=== PATIENT | female | born 1945 | race Caucasian/White ===

== ENCOUNTER 2024-01-16 10:05 | Emergency (ER) | payer MEDICARE, SELFPAY ==
[2024-01-16] VITALS (9 sets, daily range): BP systolic 104–165; BP diastolic 32–91
[2024-01-16 11:18] LABS: % Basophils 0.7 % (0-2); % Eosinophils 0.1 % (0-6); % Immature Granulocytes 0.4 % (0-0.5); % Neutrophils 74.8 % (42.2-75.2); Absolute Basophils 0.1 10^3/uL (0-0.2); Absolute Lymphocytes 1.5 10^3/uL (1.2-3.4); Absolute Monocytes 0.5 10^3/uL (0.1-0.6); Absolute Neutrophils 6.2 10^3/uL (1.4-6.5); Hematocrit 50.5 % (37.0-47.0); Hemoglobin 17.1 g/dL (12.0-16.0); Mean Corp Hgb Conc. 33.9 g/dL (33.0-37.0); Mean Corpuscular Hgb 32.4 pg (27.0-31.0); Mean Corpuscular Volume 95.6 fL (81.0-99.0); Mean Platelet Volume 10.7 fL (7.4-10.4); Nucleated Red Blood Cells % 0 %; Platelet Count 248 10^3/uL (130-400); Red Blood Cell Count 5.28 10^6/uL (4.20-5.40); Red Cell Dist. Width 12.5 % (11.5-14.5); White Blood Cell Count 8.3 10^3/uL (4.8-10.8)
[2024-01-16 11:39] LABS: Blood Urea Nitrogen 31 mg/dl (7-17); Calcium 9.3 mg/dl (8.4-10.2); Carbon Dioxide 28 mmol/L (22-30); Chloride 99 mmol/L (98-107); Glucose 128 mg/dl (70-99); Sodium 136 mmol/L (135-145); eGFR > 60.00
--- NOTE | 2024-01-16 11:45 | ED.GENMED ---
History of Present Illness
<Priti Brandt PA-C - Last Filed: 01/16/24 23:29>
General
Chief Complaint: Breathing Problem
Source: patient
Exam Limitations: none
Time Seen by Provider: 01/16/24 11:23
Nursing documentation reviewed up to this point in time: agreed with
Travel History
Have you had any contact with someone who has COVID-19?: No
Do you have any symptoms of coronavirus? Fever > 100 degrees, chills, cough, shortness of breath, sore throat, loss of taste or smell, muscle aches, or headache?: No
History of Present Illness
History of Present Illness:
Patient is an 78-year-old female with history of glaucoma presenting to the emergency department for evaluation of shortness of breath. Patient unsure when symptoms started but feels as if it has been hard to take a deep breath over the past many
weeks. She also reports occasional palpitations in lower chest.
Patient's friend who is a nurse states that she has been dealing with constipation over the past few months. She also endorses very dark yellow urine.
Patient denies any chest pain, headache, fever, chills, hemoptysis, cough. She denies any urinary symptoms.
Patient has not seen a primary care doctor in many years. Patient has a long history of smoking. She does live alone since her brother a few months ago. She does report not eating and drinking much. Patient denies any recent falls or trauma
Phy Exam
<Priti Brandt PA-C - Last Filed: 01/16/24 23:29>
Physical Exam
Physical Exam:
General: Very frail and thin appearing, cachectic; nontoxic
Vitals: Mildly hypertensive, otherwise vital signs stable; afebrile
HEENT: protecting airway
Neck: appears supple, no JVD, no midline cervical tenderness, trachea midline
CV: Regular rate and rhythm, heart sounds normal, no evidence of cyanosis; anterior chest wall nontender to palpation
Resp: Very diminished breath sounds and poor air movement bilaterally, O2 saturation 95 on room air
Abd: Soft, nontender, non-distended
Extremities: No deformities, no evidence of cyanosis or edema; calves nontender and nonerythematous/edematous bilateral
Back: No midline spinal tenderness, no rash
Neuro: alert and oriented; grossly intact
Psych: Normal affect
Skin: Intact, no rashes
Scores
<Priti Brandt PA-C - Last Filed: 01/16/24 23:29>
Heart Failure Risk
Heart Failure Risk Score: Not Applicable
Course
<Priti Brandt PA-C - Last Filed: 01/16/24 23:29>
Orders/Labs/Results
Orders:
Orders
01/16/24 11:06
Basic Metabolic Panel Urgent
CBC/With Diff [Complete Blood Count/With Diff] Urgent
01/16/24 11:07
EKG [Electrocardiogram (*1)] Urgent
Reason for Study: Shortness of Breath
01/16/24 11:08
EKG- Treatment ONCE
01/16/24 11:56
Ipratropium/Albuterol Sulfate [Duoneb] 3 ml INH R NOW STA
CR Chest - 2 Views Urgent
Comment:
Reason For Exam: shortness of breath
01/16/24 11:57
0.9% Sodium Chloride 500 ml [Nss] 500 ml IV BOLUS
01/16/24 12:12
D-Dimer Urgent
Troponin I Urgent
01/16/24 12:21
Case Management Consult ONCE
Case Management Consult: Discharge Planning
Lumbar Spine, 2 or 3 View [CR Lumbar Spine 2 Or 3 Views] Urgent
Comment:
Reason For Exam: lower back pain
PT Consult [Pt Eval And Treat] Urgent
Activity Level: As Tolerated
01/16/24 13:43
Urinalysis Reflex To Culture Urgent
Date Specimen was Collected: 01/16/24
Time Specimen was Collected: 13:40
Urine Microscopic Reflex Cult Urgent
Urine Culture Urgent
MARYELLEN Source: U
Specimen Description:
Date Specimen was Collected: 01/16/24
Time Specimen was Collected: 13:40
01/16/24 14:07
Dexamethasone Sod Phosphate [Decadron] 6 mg IV NOW STA
01/16/24 14:34
CefTRIAXone [Rocephin] 1,000 mg IV NOW STA
Abnormal Lab Results
01/16/24 01/16/24 01/16/24
11:06 12:12 13:43
Hgb 17.1 H g/dL
(12.0-16.0)
Hct 50.5 H %
(37.0-47.0)
MCH 32.4 H pg
(27.0-31.0)
MPV 10.7 H fL
(7.4-10.4)
Lymphocytes % 18.0 L %
(20.5-51.1)
D-Dimer 0.58 H ug/mlFEU
(0.00-0.50)
BUN 31 H mg/dl
(7-17)
Glucose 128 H mg/dl
(70-99)
Urine Ketones 3+ A
(Negative)
Urine Nitrite (Reflex) Positive A
(Negative)
Leukocyte Esterase Rfl Trace A
(Negative)
Urine WBC (Reflex) 16-20 A /HPF
(0-5)
Urine Bacteria (Reflex) Many A
(Negative)
01/16/24 11:06
01/16/24 11:06
Vital Signs
Initial and Last Documented VS:
Initial Vital Signs
Temp Pulse Resp BP Pulse Ox
98.3 F 98 22 143/91 94
01/16/24 10:18 01/16/24 10:18 01/16/24 10:18 01/16/24 10:18 01/16/24 10:18
Last Documented Vital Signs
Temp Pulse Resp BP Pulse Ox
98.5 F 85 23 104/32 95
01/16/24 17:30 01/16/24 15:55 01/16/24 15:55 01/16/24 16:02 01/16/24 14:30
<Jass Krause MD - Last Filed: 01/16/24 12:26>
Orders/Labs/Results
Orders:
Orders
01/16/24 11:06
Basic Metabolic Panel Urgent
CBC/With Diff [Complete Blood Count/With Diff] Urgent
01/16/24 11:07
EKG [Electrocardiogram (*1)] Urgent
Reason for Study: Shortness of Breath
01/16/24 11:08
EKG- Treatment ONCE
01/16/24 11:56
Ipratropium/Albuterol Sulfate [Duoneb] 3 ml INH R NOW STA
CR Chest - 2 Views Urgent
Comment:
Reason For Exam: shortness of breath
01/16/24 11:57
0.9% Sodium Chloride 500 ml [Nss] 500 ml IV BOLUS
01/16/24 12:12
D-Dimer Urgent
Troponin I Urgent
01/16/24 12:21
Case Management Consult ONCE
Case Management Consult: Discharge Planning
Lumbar Spine, 2 or 3 View [CR Lumbar Spine 2 Or 3 Views] Urgent
Comment:
Reason For Exam: lower back pain
PT Consult [Pt Eval And Treat] Urgent
Activity Level: As Tolerated
01/16/24 13:43
Urinalysis Reflex To Culture Urgent
Date Specimen was Collected: 01/16/24
Time Specimen was Collected: 13:40
Urine Microscopic Reflex Cult Urgent
Urine Culture Urgent
MARYELLEN Source: U
Specimen Description:
Date Specimen was Collected: 01/16/24
Time Specimen was Collected: 13:40
01/16/24 14:07
Dexamethasone Sod Phosphate [Decadron] 6 mg IV NOW STA
01/16/24 14:34
CefTRIAXone [Rocephin] 1,000 mg IV NOW STA
Abnormal Lab Results
01/16/24 01/16/24 01/16/24
11:06 12:12 13:43
Hgb 17.1 H g/dL
(12.0-16.0)
Hct 50.5 H %
(37.0-47.0)
MCH 32.4 H pg
(27.0-31.0)
MPV 10.7 H fL
(7.4-10.4)
Lymphocytes % 18.0 L %
(20.5-51.1)
D-Dimer 0.58 H ug/mlFEU
(0.00-0.50)
BUN 31 H mg/dl
(7-17)
Glucose 128 H mg/dl
(70-99)
Urine Ketones 3+ A
(Negative)
Urine Nitrite (Reflex) Positive A
(Negative)
Leukocyte Esterase Rfl Trace A
(Negative)
Urine WBC (Reflex) 16-20 A /HPF
(0-5)
Urine Bacteria (Reflex) Many A
(Negative)
01/16/24 11:06
01/16/24 11:06
Vital Signs
Initial and Last Documented VS:
Initial Vital Signs
Temp Pulse Resp BP Pulse Ox
98.3 F 98 22 143/91 94
01/16/24 10:18 01/16/24 10:18 01/16/24 10:18 01/16/24 10:18 04/16/24 10:18
Last Documented Vital Signs
Temp Pulse Resp BP Pulse Ox
98.5 F 85 23 104/32 95
01/16/24 17:30 01/16/24 15:55 01/16/24 15:55 01/16/24 16:02 01/16/24 14:30
<Priti Brandt PA-C - Last Filed: 01/16/24 23:29>
MDM/Problems Addressed
Differential Diagnosis Includes:
Shortness of breath: COPD, bronchitis, pneumothorax, pneumonia, PE; sciatica, compression fracture, muscle strain/spasm
MDM/Problems Addressed:
Patient is an 78 year old female presenting to emergency department with neighbor for evaluation of progressive shortness of breath and chronic low back pain. No fever, chills. No red flag back pain symptoms. Patient with difficulty ambulating/
completing ADLs over past few months since he brother . Suspect all chronic medical problems. Exam as above. Patient incredibly thin, cachectic. Decreased breath sounds bilaterally. With lengthy history of smoking - suspect likely undiagnosed
COPD. Will give duoneb and decadron. Will check labs, troponin, dimer, chest xray. Lumbar xray.
Significant concern for patients ability to care for herself at home. Will place consult for case management and PT.
Labs noted. D-dimer adjusted for age - within normal limit. Troponin undetectable. Signs of mild dehydration - will give IVF. Chest xray shows hyperinflation consistent with COPD but no acute process. Patient maintaining O2 saturation around 95 on
room air without any decline with ambulation. Will plan for discharge with steroid inhaler for daily use, albuterol PRN, medrol dose pack.
Lumbar xray negative for any acute fracture, degenerative changes seen.
UA appears infected. Will give rocephin in ED and discharge with course of ceftin to start tomorrow.
Patient medically stable for discharge at this point. Discussed admission vs. discharge home with patient.Lengthy discussion with PT and case management. Unable to place in SNF based on insurance coverage. Unable to coordinate home care due to lack
of PCP. Case managment spoke with friend/neighbor who is a nurse. She will check on patient daily, ensure PCP follow-up so home nursing can be initiated.
Discussed discharge planning / medications / return precautions with both patient and friend (nurse). All questions answered. They will get appt with patient this week.
Chronic conditions affecting care:
N/A
Acute Exacerbation and/or Progression of Chronic Illness:
COPD
<Priti Brandt PA-C - Last Filed: 01/16/24 23:29>
*Radiology
Radiology exam reviewed: preliminary read by ED provider and radiology read reviewed
*Pulse Oximetry
Patient hypoxic: no
*EKG
Interpreted by ED Provider?: Yes
EKG Intrepretation Date: 01/16/24
Comparison EKG: changes noted
Heart Rate: 81
Rate: normal
Rhythm: sinus
Ischemia: non-specific ST changes
*Account Installation Specialist Interpretation
Rate: normal
Interpretation: normal
Heart Rate: 84
Rhythm: sinus
*Critical Care Note
Total Time (30-74mins, 75-104mins- exclusive of procedures): Not Applicable
<Priti Brandt PA-C - Last Filed: 01/16/24 23:29>
Patient Management
Social determinants of health affecting care: Living situation, Poor outpatient follow-up and Poor social support
Discussion with other providers: Other (Case managment/ PT)
Escalation/DeEscalation of care consider admission/obs:
Medically stable for discharge without any indication for admission
ED Attending Note
<Priti Brandt PA-C - Last Filed: 01/16/24 23:29>
-
Portions of this chart may have been created with voice recognition software.� Occasional wrong word or��sound alike� substitutions may have occurred due to the inherent limitations of voice recognition software.
<Jass Krause MD - Last Filed: 01/16/24 12:26>
ED Attending Note
Patient seen and examined by attending physician: Yes
I performed the substantive portion of visit, reviewed & personally made and approve the management plan that is documented in note by myself or RG.: Yes
ED Attending Note:
78-year-old female complaining of ongoing shortness of breath progressive in nature also low back pain that has been there since last year. Patient was brought in by a neighbor. Lives alone since her brother recently. Has been dwindling at
home. Patient has no other specific complaints.
GENERAL: Alert and oriented. Elderly and frail. Cachectic
EYE: Orbits normal.
NECK: Supple
CARDIAC: Regular rate and rhythm without any obvious murmurs.
LUNGS: Minimal tachypnea. Decreased breath sound usually.
ABDOMEN: Soft, without focal tenderness or distention
NEUROLOGICAL: Alert and oriented , grossly non-focal
SKIN: Warm and dry, no rash or lesion, no discoloration, skin intact.
MUSCULOSKELETAL: No edema,no deformity.Good color. Thinning
PSYCH: Normal and appropriate interaction.
Suspect all chronic issues COPD chronic back pain. Workup in progress. There are concerns for ADL issues and patient living alone. We will have case management and physical therapy involved. Check pulse ox with ambulation.
Discharge Plan
Departure
Patient Disposition: Home (Routine Discharge)
Date of Disposition: 01/16/24
Time of Disposition: 15:46
Patient with high blood pressure during this ER visit?: Yes
Condition: Good
Covid-19: Not Applicable
Discharge Problem:
COPD (chronic obstructive pulmonary disease), Acute UTI
Instructions: Chronic obstructive pulmonary disease (COPD), Urinary Tract Infection, Adult (DC)
Prescriptions:
New
cefdinir 300 mg capsule
300 mg PO BID 5 Days Qty: 10 0RF
albuterol sulfate 90 mcg/actuation HFA aerosol inhaler
2 puff inhalation Q4H PRN (Reason: shortness of breath or wheezing) Qty: 8.5 0RF
methylprednisolone 4 mg tablets,dose pack
See Rx Instructions .ROUTE .COMPLEX Qty: 21 0RF
Rx Instructions:
for 6 days
fluticasone propionate 110 mcg/actuation HFA aerosol inhaler
2 puff inhalation BID Qty: 12 0RF
No Action
Thera Tablet
1 tab PO DAILY
timolol maleate 0.5 % Gel Forming Solution
1 drp BOTH EYES DAILY
Referrals:
Elijah Barrios MD [Family Provider] - Next open appointment
Activity Restrictions/Additional Instructions:
- Return to the emergency department any high fevers, chest pain, shortness of breath/difficulty breathing, persistent cough/coughing up blood, inability to ambulate, severe pain, worsening of current symptoms, signs of severe dehydration, or any
other concerns
-A few prescriptions have been sent to your pharmacy. You should take these as directed. You should start these medications tomorrow. You should use the Flovent inhaler twice per day. The albuterol inhaler can be used as needed for shortness of
breath/wheezing
-You can take tylenol as needed for any pain.
-It is important to stay well-hydrated.
-As discussed -it is very important that you follow-up with your primary care provider as soon as possible to establish care. Your neighbor will plan to come check on you every day until you are able to establish at home nursing care.
Interventions
Interventions:
*Risk Screen - Suicide Last Done: 01/16/24 10:18
*General Assessment Last Done: 01/16/24 10:18
*Neglect/Abuse Screening Last Done: 01/16/24 10:18
*Nursing Disposition Last Done: 01/16/24 17:30
ER-Oahnxr-Vfcmhxjpyz Assessment Last Done: 01/16/24 12:19
ED- Cardiac Assessment Last Done: 01/16/24 12:19
ED- Pulmonary Assessment Last Done: 01/16/24 12:19
Discharge Date and Time
Discharge Date/Time: 01/16/24 18:10
Print Language: TRINIDADIAN
[2024-01-16] MEDS: DUONEB 3 ML INH (12:08)
[2024-01-16] MEDS: NSS 500 IV (12:09)
[2024-01-16 12:32] LABS: D-Dimer 0.58 ug/mlFEU (0.00-0.50)
[2024-01-16 12:44] LABS: Troponin I 0.014 ng/ml
--- NOTE | 2024-01-16 12:46 | CM ---
Addendum entered by Tracey Rob RN 01/16/24 15:35:
CM called [employer] with report of self neglect. Aging will follow up with patient and her support system.
Addendum entered by Tracey Rob RN 01/16/24 14:42:
Patient spoke with patient's friend Tracey who is an RN. She stated that she will help provide supervision for patient with the assistance of her mother in law who is patient's neighbor. Tracey stated that she plans to assist patient in making and
getting to her doctor's appointments.
CM updated patient and she is agreeable to plan. CM will call [employer] with a report of self neglect.
CM updated ED PA and bedside RN.
PLAN: Home with friends to support and increased supervision.
Original Note:
CM was consulted for discharge planning. CM met with patient in room. Patient was oriented and pleasant. Patient did appear very cachectic. Patient stated that she lives alone. She does not have a history of VN or SNF. Patient stated that she does
drive occasionally to access food at the local grocery store. Patient has not seen her PCP for several years.
CM updated ED PA with discharge planning challenges. Patient does not have Medicare funding to go to SNF. Patient also had not seen her PCP in several years therefore she does not have a physician to follow her for home care. CM will await continued
ED work up and PT evaluation.
[2024-01-16 14:04] LABS: Urine Albumin Trace (Neg - Trace); Urine Bilirubin Negative (Negative); Urine Character Slightly Cloudy (Clear); Urine Color Yellow; Urine Glucose Negative (Negative); Urine Ketone 3+ (Negative); Urine Leukocyte Trace (Negative); Urine Nitrite Positive (Negative); Urine Occult Blood Negative (Negative); Urine Urobilinogen Negative (Neg - 1+)
[2024-01-16 14:16] LABS: Urine Bacteria Many (Negative); Urine Red Blood Cell 0-2 /HPF (0-2); Urine Squamous Cell 0-2 /LPF (Few); Urine White Cell 16-20 /HPF (0-5)
[2024-01-16] MEDS: ROCEPHIN 1000 MG IV (15:50)
[2024-01-16] MEDS: DECADRON 6 MG IV (15:51)
== END 2024-01-16 18:10 | disposition home or self-care (01) ==
LOC: EMR 10:05
PROVIDERS: Physician Assistant; EMERGENCY PHYSICIAN Emergency Medicine; FAMILY PHYSICIAN Internal Medicine
DX: N39.0 Urinary tract infection, site not specified (principal); J44.9 Chronic obstructive pulmonary disease, unspecified; R03.0 Elevated blood-pressure reading, without diagnosis of hypertension; Z87.891 Personal history of nicotine dependence; Z60.2 Problems related to living alone
CPT/HCPCS: 99285; 96374; 96375; 96361; 94640; 71046; 72100; 80048; 81003; 81015; 84484; 85025; 85379; 87077; 87086; 87186; 93005

== ENCOUNTER → 2024-07-18 06:33 | Outpatient (REF) | payer MEDICARE, SELFPAY ==
[2024-07-18 08:09] LABS: ALT (SGPT) 13 U/L (0-35); AST (SGOT) 25 U/L (14-36); Albumin 4.6 g/dl (3.5-5.0); Alkaline Phosphatase 48 U/L (38-126); Amylase 182 U/L (30-110); Blood Urea Nitrogen 22 mg/dl (7-17); Calcium 9.6 mg/dl (8.4-10.2); Carbon Dioxide 34 mmol/L (22-30); Chloride 103 mmol/L (98-107); Glucose 102 mg/dl (70-99); Lipase 417 U/L (23-300); Potassium 4.5 mmol/L (3.5-5.1); Sodium 145 mmol/L (135-145); Total Bilirubin 0.5 mg/dl (0.2-1.3); Total Protein 6.8 g/dl (6.3-8.2); eGFR > 60.00
[2024-07-18 08:17] LABS: Free T4 1.11 ng/dl (0.78-2.19)
[2024-07-18 08:31] LABS: TSH 2.32 uIU/ml (0.47-4.68)
== END ==
LOC: RAD 06:33
PROVIDERS: ATTENDING PHYSICIAN Internal Medicine
DX: R63.4 Abnormal weight loss (principal); R63.6 Underweight
CPT/HCPCS: 36415; 76700; 80053; 82150; 83690; 84439; 84443

== ENCOUNTER 2024-11-16 16:21 | Inpatient (IN) | payer MEDICARE, SELFPAY ==
[2024-11-16] VITALS (8 sets, daily range): BP systolic 94–151; BP diastolic 60–83; BMI 14.6; BMI 13.3
[2024-11-16 14:39] LABS: % Basophils 0.3 % (0-2); % Immature Granulocytes 0.3 % (0-0.5); % Lymphocytes 15.3 % (20.5-51.1); % Monocytes 9.6 % (1.7-9.3); % Neutrophils 74.5 % (42.2-75.2); Absolute Monocytes 0.6 10^3/uL (0.1-0.6); Absolute Neutrophils 4.6 10^3/uL (1.4-6.5); Hemoglobin 15.7 g/dL (12.0-16.0); Mean Corpuscular Hgb 30.3 pg (27.0-31.0); Mean Corpuscular Volume 94.4 fL (81.0-99.0); Mean Platelet Volume 10.1 fL (7.4-10.4); Nucleated Red Blood Cells % 0 %; Platelet Count 212 10^3/uL (130-400); Red Blood Cell Count 5.19 10^6/uL (4.20-5.40); Red Cell Dist. Width 12.8 % (11.5-14.5); White Blood Cell Count 6.2 10^3/uL (4.8-10.8)
[2024-11-16 14:57] LABS: ALT (SGPT) 15 U/L (0-35); AST (SGOT) 32 U/L (14-36); Albumin 4.8 g/dl (3.5-5.0); Alkaline Phosphatase 60 U/L (38-126); Blood Urea Nitrogen 29 mg/dl (7-17); Calcium 8.8 mg/dl (8.4-10.2); Carbon Dioxide 27 mmol/L (22-30); Chloride 96 mmol/L (98-107); Estimated Creatinine Clearance 29 ml/min; Glucose 125 mg/dl (70-99); Potassium 5.1 mmol/L (3.5-5.1); Sodium 136 mmol/L (135-145); Total Protein 7.2 g/dl (6.3-8.2); eGFR > 60.00
[2024-11-16 15:02] LABS: COVID-19 Antigen Negative (Negative)
[2024-11-16 15:05] LABS: NT-proBNP 383 pg/ml
--- NOTE | 2024-11-16 15:27 | ED.GENMED ---
History of Present Illness
General
Chief Complaint: Breathing Problem
Source: patient
Exam Limitations: none
Time Seen by Provider: 11/16/24 15:04
Nursing documentation reviewed up to this point in time: agreed with
History of Present Illness
History of Present Illness:
Patient with history of COPD, accompanied by home care/RN who watches her 6 hours a day, 6 days a week, presents to ED from home secondary to overall declining condition over the past 2 weeks, worse over the past 48 hours. Patient also has had
intermittent cough. Patient has had significant decreased appetite. Patient has been sleeping more frequently and has been difficult to wake up. Denies fever. Denies vomiting or diarrhea. Denies chest pain. Denies abdominal pain. Denies rash.
Denies headache. Denies dizziness.
Review of Systems
Review of Systems
Allergies reviewed?: Yes
All Other Systems: ROS reviewed and negative except as documented in HPI and ROS
Constitutional: Reports no symptoms; Denies fever or chills
EENT: Reports no symptoms
Respiratory: Reports cough and trouble breathing
Cardiac: Reports no symptoms
ABD/GI: Reports no symptoms; Denies vomiting or diarrhea
Musculoskeletal: Reports no symptoms
Skin: Reports no symptoms
Neurological: Reports weakness; Denies dizzy or headache
Phy Exam
Physical Exam
Physical Exam:
Physical Exam
General: mild distress, not acutely ill. afebrile
Head: nc/at. eomi
Neck: supple. normal range of motion.
Heart: s1/s2 regular rate and rhythm, no murmur.
Lungs: mild acute respiratory distress. expiratory wheezing bilaterally
Abdomen: normal bowel sounds. not tender.
Neuro: alert and oriented x 3. no focal neurological deficits
Skin: no rash
Psychiatric: well kept. interactive and cooperative
Extremities: no edema. no calf tenderness.
Scores
Heart Failure Risk
Heart Failure Risk Score: Not Applicable
Course
Orders/Labs/Results
Orders:
Orders
11/16/24 14:14
Electrocardiogram (*1) Urgent
Reason for Study: Chest Pain
EKG- Treatment ONCE
11/16/24 14:19
CR Chest - 2 Views Urgent
Comment:
Reason For Exam: hypoxia
11/16/24 14:23
BNP [NT-proBNP] Urgent
COVID-19 Antigen Urgent
Source: Nasal Swab
Complete Blood Count/With Diff Urgent
Comprehensive Metabolic Panel Urgent
Influenza A+B Rapid Molecular Urgent
MARYELLEN Source: Nasal Swab
Specimen Description:
11/16/24 15:26
0.9% Sodium Chloride 500 ml [Nss] 500 ml IV BOLUS
Dexamethasone Sod Phosphate [Decadron] 6 mg IV NOW STA
Ipratropium/Albuterol Sulfate [Duoneb] 3 ml INH R NOW STA
11/16/24 15:55
Admit/Transfer Patient As Directed
Co-Sign Provider:
Level of Care: Inpatient admission
Assign to:: Medical/Surgical
Physician / Group: [email or web address]
Diagnosis: COPD flare, associated lethargic TME
Reason for Hospitalization: COPD flare, associated lethargic TME
Expected length of stay greater than two midnights?: Yes
ELOS- Estimated Length of Stay in days: 3
I certify the patient meets the requirements for IP care: Yes
11/16/24 15:56
Code Status As Directed
Resuscitation Status: Full Code
11/16/24 17:19
Ipratropium/Albuterol Sulfate [Duoneb] 3 ml INH R Q4HPRN PRN
Ipratropium/Albuterol Sulfate [Duoneb] 3 ml INH R QID
11/16/24 17:19
Activity As Directed
Activity Level: With Assistance
Intake/ Output As Directed
Frequency: Per unit guidelines
Vital Signs As Directed
Frequency: Per unit guidelines
Weight As Directed
Frequency: Daily
Copd Education [RESP] Routine
DX Deep Vein Thrombosis Video Routine
11/16/24 20:00
Guaifenesin [Mucinex] 600 mg PO Q12
11/17/24 00:00
Dexamethasone Sod Phosphate [Decadron] 4 mg IV Q8H
11/17/24 Breakfast
Regular
At Your Request: Full Participation
Does patient need a safe tray?: No
Basic Metabolic Panel IN AM
Complete Blood Count/With Diff IN AM
11/17/24 08:00
timolol maleate 1 drop BOTH EYES DAILY
Abnormal Lab Results
11/16/24
14:23
Hct 49.0 H %
(37.0-47.0)
MCHC 32.0 L g/dL
(33.0-37.0)
Absolute Lymphs (auto) 1.0 L 10^3/uL
(1.2-3.4)
Lymphocytes % 15.3 L %
(20.5-51.1)
Monocytes % 9.6 H %
(1.7-9.3)
Chloride 96 L mmol/L
(98-107)
BUN 29 H mg/dl
(7-17)
Glucose 125 H mg/dl
(70-99)
11/16/24 14:23
11/16/24 14:23
Vital Signs
Initial and Last Documented VS:
Initial Vital Signs
Temp Pulse Resp BP Pulse Ox
97.6 F 89 20 144/82 93
11/16/24 14:10 11/16/24 14:10 11/16/24 14:10 11/16/24 14:10 11/16/24 14:10
Last Documented Vital Signs
Temp Pulse Resp BP Pulse Ox
97.6 F 61 16 116/65 99
11/16/24 23:42 11/16/24 23:42 11/16/24 23:42 11/16/24 23:42 11/16/24 23:42
MDM/Problems Addressed
MDM/Problems Addressed:
History and exam consistent with likely COPD exacerbation secondary to influenza, along with dehydration due to lack of oral intake. Patient will be admitted for further evaluation and treatment. As symptoms started 2 weeks ago, patient is outside
treatment window for Tamiflu.
*Critical Care Note
Total Time (30-74mins, 75-104mins- exclusive of procedures): Not Applicable
ED Attending Note
-
Portions of this chart may have been created with voice recognition software.� Occasional wrong word or��sound alike� substitutions may have occurred due to the inherent limitations of voice recognition software.
Discharge Plan
Departure
Patient Disposition: Admit
Date of Disposition: 11/16/24
Time of Disposition: 15:31
Admit to: Telemetry
Presentation/result/management discussed w/ accepting MD/DO: Hospitalist
Discharge Problem:
COPD exacerbation, Influenza A, Dehydration
Interventions
Interventions:
*Risk Screen - Suicide Last Done: 11/16/24 17:34
*General Assessment Last Done: 11/16/24 14:10
*Neglect/Abuse Screening Last Done: 11/16/24 14:10
ED- Fall Risk Assessment Last Done: 11/16/24 14:33
*ED COVID-19 Vaccine History Last Done: 11/16/24 14:33
*Nursing Disposition Last Done: 11/16/24 16:46
ED- Cardiac Assessment Last Done: 11/16/24 14:33
ED- Pulmonary Assessment Last Done: 11/16/24 14:33
Discharge Date and Time
Discharge Date/Time: 11/16/24 17:13
[2024-11-16] MEDS: DUONEB 3 ML INH ×2 (15:45→19:42)
[2024-11-16] MEDS: DECADRON 6 MG IV (15:45)
--- NOTE | 2024-11-16 15:49 | HPS.HSE ---
Family Physician
-
Family Physician: Deon Barrios
Chief Complaint
-
POS intermittent cough
History of Present Illness
HPI
79F HX COPD, accompanied by home care/RN who watches her 6 hours a day, 6 days a week, seen at ER
- BiB from home due to overall declining condition over the past 2 weeks, worse over the past 48 hours.
- POS intermittent cough
- significantly decreased appetite.
- has been sleeping more frequently and has been difficult to wake up.
ROS
Denies fever.
Denies vomiting or diarrhea.
Denies chest pain.
Denies abdominal pain.
Denies rash.
Denies headache.
Denies dizziness.
Medical History
Past Medical History
Past Medical History: Reports COPD
Past Surgical History: Reports None
Social History
Tobacco: Former Smoker
Alcohol: None
Family History
Family History: Not pertinent
Allergies / Home Medications
Allergies reflects when Allergies were last updated in [facility].
Home Medications with original date entered in [facility]
Allergy/Medication List:
Allergies
Allergy/AdvReac Type Severity Reaction Status Date / Time
No Known Allergies Allergy Verified 11/16/24 14:20
Home Medications
albuterol sulfate 90 mcg/actuation aerosol inhaler 2 puff inhalation Q4H PRN shortness of breath or wheezing #8.5 grams 01/16/24
cefdinir 300 mg capsule 300 mg PO BID 5 days #10 caps 01/16/24
fluticasone propionate 110 mcg/actuation HFA aerosol inhaler 2 puff inhalation BID #12 grams 01/16/24
methylprednisolone 4 mg tablets in a dose pack See Rx Instructions PO .COMPLEX #21 ea 01/16/24
therapeutic multivitamin 1 tab PO DAILY 01/16/24
timolol maleate 0.5 % eye gel forming solution 1 drp BOTH EYES DAILY 01/16/24
Review of Systems
-
Constitutional: Reports No Symptoms
EENT: Reports No Symptoms
Respiratory: Reports See HPI
Cardiac: Reports No Symptoms
Abdomen/GI: Reports No Symptoms
: Reports No Symptoms
Musculoskeletal: Reports No Symptoms
Skin: Reports No Symptoms
Neurological: Reports No Symptoms
Endocrine: Reports No Symptoms
Hematologic/Lymphatic: Reports No Symptoms
Psych: Reports No Symptoms
Physical Exam
Vital Signs
Vital Signs
Temp Pulse Resp BP Pulse Ox
97.6 F 83 20 107/62 97
11/16/24 14:10 11/16/24 15:00 11/16/24 15:00 11/16/24 15:00 11/16/24 15:08
Physical Exam
General: Other (mildly distress , not toxic )
HEENT: NormoCephalic
Respiratory: Wheezes (expiratory wheezing bilaterally)
Cardiac: S1/S2 and Regular Rhythm; No Murmur
Breast: Deferred by me
GI: Soft, Non Tender and Non Distended
Genito-urinary: Deferred by me
Musculoskeletal: No Edema
Skin: No Rash
Neuro: AO x 3
Psych: Calm
Laboratory Results
-
11/16/24 14:23
11/16/24 14:23
Laboratory Results
Total Bilirubin 1.0 mg/dl (0.2-1.3) 11/16/24 14:23
AST 32 U/L (14-36) 11/16/24 14:23
ALT 15 U/L (0-35) 11/16/24 14:23
Alkaline Phosphatase 60 U/L (38-126) 11/16/24 14:23
Data Reviewed
-
Diagnostic Radiology: Report Reviewed by me
Lab Data: Labs Reviewed by me
Impression/Plan
-
Data
Nl WCC
Unremarkable CMP
CO2 27
proBNP 383
POS Flu A
CXR
COPD. No acute cardiopulmonary process.
EKG
NORMAL SINUS RHYTHM
SEPTAL INFARCT (CITED ON OR BEFORE 03-JAN-2006)
ABNORMAL ECG
WHEN COMPARED WITH ECG OF 16-JAN-2024 11:17,
NONSPECIFIC T WAVE ABNORMALITY NOW EVIDENT IN ANTERIOR LEADS
NO PRIOR hospitalist admission:
ASSESSMENT & PLAN
Viral Flu A; onset is presumed almost 2 weeks
- out of Tamiflu for benefits
COPD flare with acute bronchospasm
Intermittent lethargy due to associated TME
NEG CXR for infiltrate
- check PCT till them hold Cefdinir
- Agree with IV Decadron 4mg q8h
- c/w Nebs qid and PRN
- O2 to keep POx > 94
- If no progress in next 24 Hrs, to consider Pul consult
DVT Px: LMWH
Full code
IP MS
[2024-11-16] MEDS: NSS 500 IV (15:50)
[2024-11-16] MEDS: DUONEB INH (17:24)
--- NOTE | 2024-11-16 18:31 | PTCARENOTE ---
Rec'd pt from ER. Walked from stretcher to bed. Pt denies pain. Bed alarm placed under pt as pt's caregiver Tracey stated she has had some balance issues. Pt utilizes a cane at home which Tracey will bring tomorrow along with her eye gel. Call bower
in reach and pt oriented to unit.
[2024-11-16] MEDS: HEPARIN 5000 UNITS SC (20:20)
[2024-11-16] MEDS: MUCINEX 600 MG PO (20:20)
[2024-11-16] MEDS: DECADRON 4 MG IV (23:40)
[2024-11-17 04:44] LABS: % Basophils 0.3 % (0-2); % Lymphocytes 22.9 % (20.5-51.1); % Monocytes 5.1 % (1.7-9.3); % Neutrophils 71.7 % (42.2-75.2); Absolute Lymphocytes 0.9 10^3/uL (1.2-3.4); Absolute Monocytes 0.2 10^3/uL (0.1-0.6); Absolute Neutrophils 2.7 10^3/uL (1.4-6.5); Hematocrit 46.3 % (37.0-47.0); Hemoglobin 14.6 g/dL (12.0-16.0); Mean Corp Hgb Conc. 31.5 g/dL (33.0-37.0); Mean Corpuscular Hgb 30.5 pg (27.0-31.0); Mean Corpuscular Volume 96.9 fL (81.0-99.0); Mean Platelet Volume 10.2 fL (7.4-10.4); Nucleated Red Blood Cells % 0 %; Platelet Count 175 10^3/uL (130-400); Red Blood Cell Count 4.78 10^6/uL (4.20-5.40); Red Cell Dist. Width 12.7 % (11.5-14.5); White Blood Cell Count 3.7 10^3/uL (4.8-10.8)
[2024-11-17 05:07] LABS: Blood Urea Nitrogen 36 mg/dl (7-17); Calcium 8.5 mg/dl (8.4-10.2); Carbon Dioxide 29 mmol/L (22-30); Chloride 102 mmol/L (98-107); Estimated Creatinine Clearance 31 ml/min; Glucose 130 mg/dl (70-99); Potassium 5.5 mmol/L (3.5-5.1); Sodium 138 mmol/L (135-145); eGFR > 60.00
[2024-11-17 06:00] VITALS: BMI 12.9
[2024-11-17 07:34] VITALS: BP 135/73
[2024-11-17] MEDS: DUONEB 3 ML INH ×4 (07:40→19:34)
[2024-11-17] MEDS: HEPARIN 5000 UNITS SC ×2 (07:47→19:12)
[2024-11-17] MEDS: MUCINEX 600 MG PO ×2 (07:47→19:13)
[2024-11-17] MEDS: DECADRON 4 MG IV ×3 (07:50→23:44)
[2024-11-17 10:24] LABS: Procalcitonin 0.15 ng/ml (0.0-0.25)
--- NOTE | 2024-11-17 11:05 | W.PN.HOSP.TC ---
Today's Communication/Plan
-
Monitor vital signs see plan
Continue with IV steroids, nebs
Add Pulmicort
Add nicotine patch
Assessment / Plan
Assessment / Plan
General: Other (mildly distress , not toxic )
HEENT: NormoCephalic
Respiratory: Wheezes (expiratory wheezing bilaterally)
Cardiac: S1/S2 and Regular Rhythm; No Murmur
GI: Soft, Non Tender and Non Distended
Musculoskeletal: No Edema
Neuro: AO x 3
Psych: Calm
Acute hypoxic respiratory sufficiency likely secondary to COPD exacerbation with underlying influenza A
Onset is presumed at least around 2 weeks, out of window for Tamiflu. Symptomatic treatment
Chest x-ray without any infiltrate
Procalcitonin negative
Hold off on antibiotics
Continue with IV Decadron, nebs 4 times daily and as needed. Add Pulmicort
Actively smoking, nicotine patch
Currently on 2 L, wean oxygen as tolerated
Patient used to an inhaler however refused to use it at home per artificial flowers supervisor at bedside
Active smoking
cessation counseling
nicotine patch
Hyperkalemia
Lokelma
Monitor
DVT prophylaxis
Heparin
Full code
Anticipated Discharge: 24 - 48 hours
Subjective/Interval History
-
Date of Service: November 17, 2024
Denies pain
Objective Data
-
Labs:
Laboratory Results
11/17/24
04:25
WBC 3.7 L
Hgb 14.6
Hct 46.3
Plt Count 175
Sodium 138
Potassium 5.5 H
Chloride 102
Carbon Dioxide 29
BUN 36 H
Creatinine 0.8
Glucose 130 H
Calcium 8.5
Vital Signs:
Vital Signs
Temp Pulse Resp BP Pulse Ox
98 F 88 16 135/73 96
11/17/24 07:34 11/17/24 10:58 11/17/24 10:58 11/17/24 07:34 11/17/24 07:46
I&O
11/16/24 11/17/24 11/18/24
06:59 06:59 06:59
Intake Total 360 / 360
Balance 360 / 360
[2024-11-17] MEDS: PULMICORT 0.5 MG INH ×2 (11:16→19:35)
[2024-11-17] MEDS: LOKELMA 10 GRAM PO (11:21)
[2024-11-17] MEDS: MAG-TAB SR 84 MG PO (11:22)
[2024-11-17] MEDS: PREPARATION H OINTMENT 1 APPLIC RECTAL (11:22)
[2024-11-17] MEDS: NICODERM TRANSDERMAL 7 MG TRANSDERM (11:22)
--- NOTE | 2024-11-17 12:56 | CM ---
CM reviewed chart, patient positive for Influenza A. Patient seen bedside, initial assessment completed. Patient reports she resides independently in a townhouse, 6 steps to enter, full flight of stairs to bedroom, has been staying downstairs on
couch. Patient confirms she has a private caregiver, Tracey, 6 days a week, about 6 hours, unsure if she has had VN in the past, denies SNF. Patient has a cane and walker at home, currently on O2, does not wear home O2. Patient PCP Deon
Denis, pharmacy [facility]. CM will continue to follow for all discharge planning needs.
Plan; home with caregiver, patient may benefit from PT/OT jacob, watch for VN needs
[2024-11-17 15:10] VITALS: BP 113/68
--- NOTE | 2024-11-17 18:31 | PTCARENOTE ---
attempt to wean patient to room air, Patient's O2 desat to 85%, 2L NC placed with O2 sat 97%, will continue to monitor.
[2024-11-17 23:09] VITALS: BP 119/67
[2024-11-18 06:00] VITALS: BMI 13.1
[2024-11-18 07:10] VITALS: BP 123/58
[2024-11-18] MEDS: MAG-TAB SR 84 MG PO (07:27)
[2024-11-18] MEDS: DECADRON 4 MG IV ×3 (07:27→23:13)
[2024-11-18] MEDS: MUCINEX 600 MG PO ×2 (07:27→19:45)
[2024-11-18] MEDS: NICODERM TRANSDERMAL 7 MG TRANSDERM (07:27)
[2024-11-18] MEDS: HEPARIN 5000 UNITS SC ×2 (07:27→19:45)
[2024-11-18] MEDS: DUONEB 3 ML INH ×4 (07:36→20:06)
[2024-11-18] MEDS: PULMICORT 0.5 MG INH ×2 (07:36→20:06)
[2024-11-18] MEDS: NON-FORMULARY ITEM 1 DROP BOTH EYES (07:38)
[2024-11-18 09:16] LABS: % Immature Granulocytes 0.1 % (0-0.5); % Lymphocytes 7.3 % (20.5-51.1); % Monocytes 3.5 % (1.7-9.3); % Neutrophils 89.1 % (42.2-75.2); Absolute Lymphocytes 0.6 10^3/uL (1.2-3.4); Absolute Monocytes 0.3 10^3/uL (0.1-0.6); Absolute Neutrophils 7.3 10^3/uL (1.4-6.5); Hematocrit 44.8 % (37.0-47.0); Hemoglobin 14.3 g/dL (12.0-16.0); Mean Corp Hgb Conc. 31.9 g/dL (33.0-37.0); Mean Corpuscular Hgb 30.7 pg (27.0-31.0); Mean Corpuscular Volume 96.1 fL (81.0-99.0); Nucleated Red Blood Cells % 0 %; Platelet Count 200 10^3/uL (130-400); Red Blood Cell Count 4.66 10^6/uL (4.20-5.40); Red Cell Dist. Width 12.5 % (11.5-14.5); White Blood Cell Count 8.2 10^3/uL (4.8-10.8)
[2024-11-18 09:49] LABS: Blood Urea Nitrogen 35 mg/dl (7-17); Calcium 8.7 mg/dl (8.4-10.2); Carbon Dioxide 31 mmol/L (22-30); Chloride 100 mmol/L (98-107); Estimated Creatinine Clearance 40 ml/min; Glucose 98 mg/dl (70-99); Potassium 4.6 mmol/L (3.5-5.1); Sodium 139 mmol/L (135-145); eGFR > 60.00
--- NOTE | 2024-11-18 11:25 | CM ---
CM reviewed chart, patient seen bedside, remains on O2. CM will watch for PT/OT evaluations for further recommendations. CM will continue to follow for all discharge planning needs.
Plan; home with caregivers, watch O2 needs, watch for VN/SNF recommendations.
--- NOTE | 2024-11-18 13:27 | W.PN.HOSP.TC ---
Today's Communication/Plan
-
home O2 eval in AM
continue current plan of care
PT/OT today
Assessment / Plan
Assessment / Plan
Assessment:
Acute hypoxic respiratory sufficiency likely secondary to COPD exacerbation with underlying influenza A
- out of window for Tamiflu, symptom onset ~2 weeks
- continue supportive care
- CXR negative; no role for Abx
- continue IV Decadron
- continue Pulmicort
- continue nebs
- O2 status: on 2L, wean as able. Home O2 testing in 24 hours
Active smoking
- cessation counseling
- nicotine patch
Hyperkalemia
- improved s/p Lokelma
DVT prophylaxis: SC Heparin
Code: Full
Anticipated Discharge: 24 - 48 hours
Subjective/Interval History
-
Date of Service: November 18, 2024
resting ok
remains with wheezing, mild SOB
Objective Data
-
Labs:
Laboratory Results
11/18/24
07:38
WBC 8.2
Hgb 14.3
Hct 44.8
Plt Count 200
Sodium 139
Potassium 4.6
Chloride 100
Carbon Dioxide 31 H
BUN 35 H
Creatinine 0.6
Glucose 98
Calcium 8.7
Vital Signs:
Vital Signs
Temp Pulse Resp BP Pulse Ox
97.7 F 88 15 123/58 87
11/18/24 07:10 11/18/24 11:44 11/18/24 11:44 11/18/24 07:10 11/18/24 11:53
I&O
11/17/24 11/18/24 11/19/24
06:59 06:59 06:59
Intake Total 360 / 360 480 / 480
Balance 360 / 360 480 / 480
Physical Exam
-
General: No Apparent Distress
HEENT: Normocephalic and Atraumatic
Respiratory: Wheezes and Decreased Breath Sounds (with some chest tightness)
Cardiac: Regular Rhythm and S1/S2
GI: Soft
Neuro: AO x 3
Psych: Calm
Data Reviewed
-
Total Time Spent with Patient (in minutes): 41
Labs: Labs Reviewed by me
--- NOTE | 2024-11-18 14:41 | PTCARENOTE ---
Addendum entered by Delfina Doran RN 11/18/24 14:45:
while at rest
Original Note:
Patient weaned off of oxygen O2 sat 93% on RA
[2024-11-18 15:08] VITALS: BP 164/90; PULSE 78; O2SAT 93
--- NOTE | 2024-11-18 15:30 | PTCARENOTE ---
patient working with PT, patient desat to 85% on RA while sitting up in chair. 2L NC placed on patient. O2 sat increased to 90% on 2LNC while in chair. will continue to monitor.
[2024-11-18 16:18] VITALS: BP 164/90; PULSE 75; O2SAT 93
[2024-11-18 23:30] VITALS: BP 131/64
[2024-11-19 05:51] VITALS: BMI 13.1
[2024-11-19] MEDS: DUONEB 3 ML INH ×4 (05:56→19:39)
[2024-11-19] MEDS: PULMICORT 0.5 MG INH ×2 (05:56→19:39)
[2024-11-19 07:00] VITALS: BP 158/76
[2024-11-19 08:59] LABS: Hematocrit 43.8 % (37.0-47.0); Mean Corpuscular Hgb 30.5 pg (27.0-31.0); Mean Corpuscular Volume 95.4 fL (81.0-99.0); Mean Platelet Volume 11.1 fL (7.4-10.4); Platelet Count 195 10^3/uL (130-400); Red Blood Cell Count 4.59 10^6/uL (4.20-5.40); Red Cell Dist. Width 12.6 % (11.5-14.5); White Blood Cell Count 7.4 10^3/uL (4.8-10.8)
[2024-11-19 09:47] LABS: Blood Urea Nitrogen 36 mg/dl (7-17); Calcium 8.7 mg/dl (8.4-10.2); Carbon Dioxide 34 mmol/L (22-30); Chloride 100 mmol/L (98-107); Estimated Creatinine Clearance 34 ml/min; Glucose 92 mg/dl (70-99); Potassium 5.5 mmol/L (3.5-5.1); Sodium 139 mmol/L (135-145); eGFR > 60.00
--- NOTE | 2024-11-19 10:16 | PN.CDI ---
CDI
- -
CDI:
Physician Documentation Request
Admit Date: 11/16/24 16:21
Dear Doctor Kim,
Please review the following and provide your response in the progress notes.
Clinical Indicators:
Height: 5' 4'
Weight: 76 lbs
BMI: 13.1
If possible, please provide an associated diagnosis related to the abnormal BMI, such as:
Cachectic
Underweight
BMI is not significant
Other
BMI < or = to 19.9
Underweight
Weight Loss
Cachectic
Anorexia
Use of terms such as suspected, likely, concern for, or probable (associated with a specific diagnosis that is being evaluated, monitored, or treated as if it exists) are acceptable and can be coded in the inpatient setting, when documented at the
time of discharge.
Thank you,
Alyce Farfan RN, BSN
CDI Specialist
Available via [place] text
Please use your independent medical judgment in providing your response.
--- NOTE | 2024-11-19 10:23 | W.PN.HOSP.TC ---
Today's Communication/Plan
-
decrease IV steroids
home O2 testing
Assessment / Plan
Assessment / Plan
Assessment:
Acute hypoxic respiratory sufficiency likely secondary to COPD exacerbation with underlying influenza A
- out of window for Tamiflu, symptom onset ~2 weeks
- continue supportive care
- CXR negative; no role for Abx
- continue IV Decadron, wean to 4mg q12 from q8h
- continue Pulmicort
- continue nebs
- O2 status: on 2L, wean as able. Home O2 testing today
Active smoking
- cessation counseling
- nicotine patch
Hyperkalemia
- improved s/p Lokelma
Pulmonary cachexia
DVT prophylaxis: SC Heparin
Code: Full
Dispo: PT/OT recommends SNF. Caregivers/family opt for home/VN with 24 hour care.
Anticipated Discharge: Within 24 hours
Subjective/Interval History
-
Date of Service: November 19, 2024
denies any new complaints at present
breathing improved
Objective Data
-
Labs:
Laboratory Results
11/19/24
08:05
WBC 7.4
Hgb 14.0
Hct 43.8
Plt Count 195
Sodium 139
Potassium 5.5 H
Chloride 100
Carbon Dioxide 34 H
BUN 36 H
Creatinine 0.7
Glucose 92
Calcium 8.7
Vital Signs:
Vital Signs
Temp Pulse Resp BP Pulse Ox
98.1 F 76 20 158/76 95
11/19/24 07:00 11/19/24 07:00 11/19/24 07:00 11/19/24 07:00 11/19/24 07:00
I&O
11/18/24 11/19/24 11/20/24
06:59 06:59 06:59
Intake Total 480 / 480 1380 / 1380
Balance 480 / 480 1380 / 1380
Physical Exam
-
General: No Apparent Distress
HEENT: Normocephalic and Atraumatic
Respiratory: Wheezes (faint)
Cardiac: Regular Rhythm and S1/S2
GI: Soft
Genito-urinary: No Costovertebral Tender
Neuro: AO x 3
Hematologic / Lymphatic: No Lymphadenopathy
Psych: Calm
Data Reviewed
-
Total Time Spent with Patient (in minutes): 42
Labs: Labs Reviewed by me
[2024-11-19 10:47] VITALS: BMI 13.1
[2024-11-19] MEDS: NICODERM TRANSDERMAL 7 MG TRANSDERM (11:02)
[2024-11-19] MEDS: MUCINEX 600 MG PO ×2 (11:02→20:25)
[2024-11-19] MEDS: HEPARIN 5000 UNITS SC ×2 (11:03→20:25)
[2024-11-19] MEDS: MAG-TAB SR 84 MG PO (11:03)
[2024-11-19] MEDS: DECADRON 4 MG IV ×2 (11:04→20:25)
[2024-11-19] MEDS: NON-FORMULARY ITEM 1 DROP BOTH EYES (11:05)
--- NOTE | 2024-11-19 12:05 | CM ---
CM reviewed pt with Dr Alvarez- [facility] tomorrow
Bedside meeting with pt and her caregiver/Tracey
SNF recs per therapy
Pt declined SNF- plan for caregiver to increase hours and provide 24/7 care at home
Referral to [facility] per pt request
Pt will need new WW issued by therapy
Update to Dr Alvarez requesting script for WW
Home O2 eval placed and pending
Will likely need nebulizer on dc
Call to [facility] and nebs in stock if needed on dc
Discharge Disposition- home with [facility] & 24/7 care, new WW and nebulizer, watch for home O2 needs
--- NOTE | 2024-11-19 12:56 | VNURNOTE ---
Motorcycle Mechanic Apprentice met with patient to discuss [facility] nurse/therapy, visits, schedule and homebound status. Patient is agreeable and understands that visits at home will be 2-3 x per week to assess and teach medical management.
[facility] contact information provided. Patient is aware that [facility] will contact them for start of care in 1-2 days after discharge from .
[facility] referral completed in [facility]
[2024-11-19] MEDS: LOKELMA 10 GRAM PO (14:30)
[2024-11-19 15:00] VITALS: BP 183/88
[2024-11-19] MEDS: OCEAN, SALINE MIST 2 SPRAYS NASAL (20:25)
[2024-11-19] MEDS: TESSALON PERLES 200 MG PO (20:25)
[2024-11-19 23:36] VITALS: BP 146/74
--- NOTE | 2024-11-20 02:44 | DOWNTIME ---
There was a [employer] Client Plate Molder Downtime on 11/20/2024 from 0100 to 11/20/2023 at 0235 . Downtime documentation of patient's care, including medication administrations, has been reconciled in the electronic record per guidelines. Refer to the
patient's paper chart under the miscellaneous tab to see printed paper medication records and downtime forms.
[2024-11-20 05:55] VITALS: BMI 13.1
[2024-11-20 07:00] VITALS: BP 152/66
[2024-11-20] MEDS: PULMICORT 0.5 MG INH (07:42)
[2024-11-20] MEDS: DUONEB 3 ML INH ×2 (07:42→11:24)
[2024-11-20 07:53] LABS: Hematocrit 46.2 % (37.0-47.0); Hemoglobin 14.2 g/dL (12.0-16.0); Mean Corp Hgb Conc. 30.7 g/dL (33.0-37.0); Mean Corpuscular Hgb 30.4 pg (27.0-31.0); Mean Corpuscular Volume 98.9 fL (81.0-99.0); Mean Platelet Volume 10.8 fL (7.4-10.4); Platelet Count 187 10^3/uL (130-400); Red Blood Cell Count 4.67 10^6/uL (4.20-5.40); Red Cell Dist. Width 12.6 % (11.5-14.5); White Blood Cell Count 5.5 10^3/uL (4.8-10.8)
[2024-11-20] MEDS: MAG-TAB SR 84 MG PO (08:05)
[2024-11-20] MEDS: DECADRON 4 MG IV (08:05)
[2024-11-20] MEDS: NICODERM TRANSDERMAL 7 MG TRANSDERM (08:05)
[2024-11-20] MEDS: HEPARIN 5000 UNITS SC (08:06)
[2024-11-20] MEDS: OCEAN, SALINE MIST 2 SPRAYS NASAL (08:07)
[2024-11-20] MEDS: MUCINEX 600 MG PO (08:09)
[2024-11-20] MEDS: NON-FORMULARY ITEM BOTH EYES (08:11)
--- NOTE | 2024-11-20 08:35 | RESPNOTE ---
Addendum entered by Anneliese Diaz, RT 11/20/24 12:32:
patient desaturated to 85% on room air at rest.
Original Note:
patient placed on room air and desaturated to 85%. placed back on 2L.
[2024-11-20 08:40] LABS: Blood Urea Nitrogen 33 mg/dl (7-17); Calcium 8.7 mg/dl (8.4-10.2); Carbon Dioxide 38 mmol/L (22-30); Chloride 99 mmol/L (98-107); Estimated Creatinine Clearance 34 ml/min; Glucose 99 mg/dl (70-99); Potassium 5.1 mmol/L (3.5-5.1); Sodium 142 mmol/L (135-145); eGFR > 60.00
[2024-11-20 11:54] VITALS: PULSE 83; O2SAT 98
--- NOTE | 2024-11-20 12:16 | W.PN.HOSP.TC ---
Addendum entered and electronically signed by Martine Alvarez MD 11/20/24 13:21:
Severe protein calorie malnutrition
Original Note:
Today's Communication/Plan
-
dc to home/VN despite SNF recommendation
home O2 setup
PCP f/u 1 week
Assessment / Plan
Assessment / Plan
Assessment:
Acute hypoxic respiratory sufficiency likely secondary to COPD exacerbation with underlying influenza A
- out of window for Tamiflu, symptom onset ~2 weeks
- continue supportive care
- CXR negative; no role for Abx
- transition to prednisone with taper at discharge
- continue Pulmicort
- continue nebs standing and prn
- Patient is in need of oxygen at 2 LPM via nasal cannula continuously due to pulse ox of 85% on room air at rest. Oxygen will help to improve hypoxemia. Patient is mobile within the home. Duoneb therapy has been tried and is ineffective in treating
hypoxemia-related symptoms. Oxygen is needed to improve symptoms. Patient is in need of nebulizer due to COPD.
Active smoking
- cessation counseling
- nicotine patch
Hyperkalemia
- improved s/p Lokelma
Pulmonary cachexia
DVT prophylaxis: SC Heparin
Code: Full
Dispo: PT/OT recommends SNF. Caregivers/family opt for home/VN with 24 hour care, are aware of SNF recommending, higher fall risk and weakness with 2 person max assist.
More than 30 minutes spent in discharge including
Final examination of the patient
Summarizing hospital stay
Instructions for continuing care to all relevant caregivers
Preparation of discharge records, prescriptions, and referral forms
Total time spent (in minutes): 41
Anticipated Discharge: Today
Subjective/Interval History
-
Date of Service: November 20, 2024
feels tired
remains on 2L NC
Objective Data
-
Labs:
Laboratory Results
11/20/24
07:03
WBC 5.5
Hgb 14.2
Hct 46.2
Plt Count 187
Sodium 142
Potassium 5.1
Chloride 99
Carbon Dioxide 38 H
BUN 33 H
Creatinine 0.7
Glucose 99
Calcium 8.7
Vital Signs:
Vital Signs
Temp Pulse Resp BP Pulse Ox
98.4 F 88 20 152/66 93
11/20/24 07:00 11/20/24 11:28 11/20/24 11:28 11/20/24 07:00 11/20/24 11:28
I&O
11/19/24 11/20/24 11/21/24
06:59 06:59 06:59
Intake Total 1380 / 1380 480 / 480
Balance 1380 / 1380 480 / 480
Physical Exam
-
General: No Apparent Distress and Cachectic
HEENT: Normocephalic and Atraumatic
Respiratory: Wheezes (faint); Negative Rales
Cardiac: Regular Rhythm and S1/S2
GI: Soft and Nontender
Genito-urinary: No Costovertebral Tender
Neuro: AO x 3
Psych: Calm
Data Reviewed
-
Total Time Spent with Patient (in minutes): 41
Labs: Labs Reviewed by me
--- NOTE | 2024-11-20 12:24 | W.DS.TRANS ---
DC Summary - Bench Shear Operator
-
Discharge Instructions:
Discharge Diagnosis/Procedures acute COPD with exacerbation, recent influenza A
infection
Diet Regular
Activity As tolerated
Bathing Restrictions None
Other Services VN,PT,OT
Instructions:
Stand-Alone Forms:
Changes to Home Medications: No
Discharge Medications:
DC Medications w/original date entered in [facility]
timolol maleate 0.5 % eye gel forming solution 1 drp BOTH EYES DAILY 01/16/24
fluticasone propionate 50 mcg/actuation nasal spray,suspension 2 spray intranasal DAILYPRN PRN congestion 11/16/24
magnesium oxide 400 mg PO DAILY 11/16/24
phenylephrine 0.25 %-mineral oil 14 %-petrolatm 74.9 % rectal ointment (Preparation H) 1 applic ND DAILYPRN PRN hemorrhoids 11/16/24
albuterol sulfate 90 mcg/actuation aerosol inhaler 2 puff inhalation R Q4HPRN PRN shortness of breath or wheezing #8.5 grams 11/20/24
benzonatate 100 mg capsule 200 mg (2 x 100 mg) PO TIDPRN PRN cough #20 caps 11/20/24
budesonide 0.5 mg/2 mL suspension for nebulization 0.5 mg (2 mL) inhalation R BID #60 mL 11/20/24
guaifenesin 600 mg tablet, extended release 12 hr 600 mg PO Q12 #30 tabs 11/20/24
ipratropium 0.5 mg-albuterol 3 mg (2.5 mg base)/3 mL nebulization soln 3 ml inhalation R QID #90 mL 11/20/24
prednisone 10 mg tablet 10 mg PO DIRECTED #45 tabs 11/20/24
Home Medication Changes
Pending Results: No
Total time spent discharging patient (in min): 41
--- NOTE | 2024-11-20 12:25 | CM ---
CM reviewed chart, reviewed with Hospitalist, patient for discharge today. Patient seen bedside today, discussed PT recommendation of rehab, patient undecided on going home with care or going to rehab. CM discussed therapy is short term (7-10 days),
patient will return home after SNF. Call to patients caregiver, Tracey, to discuss SNF recommendation. Caregiver reports she is a registered nurse and stock or delivery clerk, will be there 24/04, discussed with patient previously this morning and patient
is somewhat forgetful, reports patient will not do well a rehab. Caregiver reports they will chart picker nebulizer from [facility], will provide transportation home to patient. Patient will require home O2, walker which will be provided by PT. CM
returned to patients room to call caregiver on speaker phone per caregiver request, caregiver spoke with patient, patient agreeable to return home with care. IMM verbally reviewed, provided with copy, placed in chart.
Plan; home with caregiver, JESSEN, new home O2, walker
--- NOTE | 2024-11-20 12:39 | VNURNOTE ---
Chart reviewed. Patient qualified for home 02. Rx faxed to Tracey at [facility] [phone]. Per JOHNNA Chaparro, patient's CG will draft roller picker neb machine. Pt will be supplied RW by upon DC.
[2024-11-20] MEDS: LOKELMA 10 GRAM PO (13:02)
--- NOTE | 2024-11-20 13:02 | PN.CDI ---
CDI
- -
CDI:
Physician Documentation Request
Admit Date: 11/16/24 16:21
Dear Doctor Kim,
Patient admitted for COPD exacerbation.
11/19 Factory Manager Assessment: 'Patient meets AND and ADOLFOEN criteria for severe protein calorie malnutrition of chronic disease due to severe muscle loss in her tricep region and severe fat loss in her clavicle region.'
If possible, please provide in your progress notes, additional specificity regarding the severity of the malnutrition:
Severe protein calorie malnutrition
Other (please specify)
[place] Criteria ([facility] Hospitalist 2017)
2 or more criteria must be present for either
non severe or severe malnutrition
Note that the criteria differs related to the
presence of an acute or chronic illness
Acute Illness Chronic Illness
Energy Intake Non Severe: <75% for >7 days Non Severe: <75% for >1 month
Severe: <50% for >5 days Severe: <75% for >1 month
Weight Loss Non Severe: 1-2% over 1 week Non Severe: 5% over 1 month
5% over 1 month 7.5% over 3 months
7.5% over 3 months 10% over 6 months
1 year N/A 20% over 1 year
Severe: >2% over 1 week Severe: >5% over 1 month
>5% over 1 month >7.5% over 3 months
>7.5% over 3 months >10% over 6 months
1 year N/A >20% over 1 year
Body Fat Non Severe: Mild Decrease Non Severe: Mild Loss
Severe: Moderate Decrease Severe: Severe Loss
Muscle Mass Non Severe: Mild Decrease Non Severe: Mild Loss
Severe: Moderate Decrease Severe: Severe Loss
Fluid Accumulation Non Severe: Mild Accumulation Non Severe: Mild Accumulation
Severe: Moderate to severe Severe: Moderate to severe
accumulation accumulation
Reduced Computer Support Analyst Strength Non Severe: N/A Non Severe: N/A
Severe: Measurably reduced Severe: Measurably reduced
Additional criteria that can be used to Determine if Mild or Moderate Malnutrition (Merck Manual 2018)
Mild Moderate Severe
Albumin gm/dl <3.0 gm/dl <2.5 gm/dl <2.0 gm/dl
Pre Albumin mg/dl <15 gm/dl <10 mg/dl <5.0 mg/dl
BMI <18.5 <17 <16
Use of terms such as suspected, likely, concern for, or probable (associated with a specific diagnosis that is being evaluated, monitored, or treated as if it exists) are acceptable and can be coded in the inpatient setting, when documented at the
time of discharge.
Thank you,
Alyce Farfan RN, BSN
CDI Specialist
Available via [place] text
Please use your independent medical judgment in providing your response.
--- NOTE | 2024-11-20 13:36 | VNURNOTE ---
[facility] liaison spoke with patient briefly at bedside. Explained [facility] services, frequency, homebound status. Patient stated she has a private caregiver who is an RN. She wasn't sure she needed VN. Also explained home PT, OT services and that all
disciplines would call prior to set up visits.
Confirmed with Tracey at [facility] that oxygen DME accepted. Portable 02 to be delivered to bedside by 5pm today. This author called patient's contact Tracey (beater tender) to explain home 02. Tracey immediately refused [facility]. She stated she will
be with patient around the clock. She denied POA status. Would not let this author explain services further. This author instructed that she has to contact [facility] before leaving hospital for home concentrator delivery coordination. She verbalized
understanding. Hospitalist notified of VN refusal. [facility] contact number texted to Tracey per her request.
[2024-11-20 14:35] VITALS: BP 163/90
== END 2024-11-20 16:38 | disposition home health service (06) | DRG 193 ==
LOC: 4 WEST ACU 16:21
PROVIDERS: Internal Medicine; ADMITTING PHYSICIAN Internal Medicine; ATTENDING PHYSICIAN Internal Medicine; EMERGENCY PHYSICIAN Emergency Medicine; FAMILY PHYSICIAN Internal Medicine
DX: J10.1 Influenza due to other identified influenza virus with other respiratory manifestations (principal); E43 Unspecified severe protein-calorie malnutrition; R64 Cachexia; J44.1 Chronic obstructive pulmonary disease with (acute) exacerbation; Z68.1 Body mass index [BMI] 19.9 or less, adult; R09.02 Hypoxemia; F17.200 Nicotine dependence, unspecified, uncomplicated; E87.6 Hypokalemia; Z11.52 Encounter for screening for COVID-19
CPT/HCPCS: 71046; 80048; 80053; 83880; 84145; 85025; 85027; 87502; 87811; 93005; 94640; 96361; 96374; 97116; 97163; 97167; 97530; 99285; 99406

== ENCOUNTER 2025-01-13 09:01 | Emergency (ER) | payer MEDICARE, SELFPAY ==
[2025-01-13 09:07] VITALS: BP 168/82
--- NOTE | 2025-01-13 11:30 | ED.GENMED ---
History of Present Illness
General
Chief Complaint: Fall
Source: patient
Exam Limitations: none
Time Seen by Provider: 01/13/25 09:09
Nursing documentation reviewed up to this point in time: agreed with
History of Present Illness
History of Present Illness:
79-year-old female presenting to the emergency department today with concerns of bilateral knee discomfort after a trip and fall denied in her head no additional injuries. Has had some mild knee pain since. This happened yesterday. Left-sided
slightly worse than the right.
Review of Systems
Review of Systems
Allergies reviewed?: Yes
All Other Systems: ROS reviewed and negative except as documented in HPI and ROS
Phy Exam
Physical Exam
Physical Exam:
GENERAL: Alert , in no apparent distress
EYE: pupils equal and reactive
NECK: Supple, no significant adenopathy.
ENT: o/p clr, mmm.
CARDIAC: Regular rate and rhythm .
LUNGS: Clear breath sounds bilaterally, no acute respiratory distress, no wheezes/rales/rhonchi
ABDOMEN: Soft, without focal tenderness, no r/g, no cvat
NEUROLOGICAL: Alert and oriented, no focal neuro deficits
SKIN: Warm and dry, skin intact.
MUSCULOSKELETAL: Mild swelling to the left knee diffusely mainly to the suprapatellar region no redness or warmth good range of motion no obvious swelling to the right knee well perfused.
PSYCH: Normal and appropriate interaction.
Course
Orders/Labs/Results
Orders:
Orders
01/13/25 09:10
Knee, Left 4 or More Views [CR Knee - Left 4 Or More View*] Urgent
Comment:
Reason For Exam: fall on knees b/l
Knee, Right 4 or More Views [CR Knee- Right 4 Or More View*] Urgent
Comment:
Reason For Exam: fall on knees b/l
01/13/25 11:29
[place] Wrap Left-Treatment ONCE
Vital Signs
Initial and Last Documented VS:
Initial Vital Signs
Temp Pulse Resp BP Pulse Ox
97.8 F 86 16 168/82 98
01/13/25 09:07 01/13/25 09:07 01/13/25 09:07 01/13/25 09:07 01/13/25 09:07
Last Documented Vital Signs
Temp Pulse Resp BP Pulse Ox
97.8 F 86 16 168/82 98
01/13/25 09:07 01/13/25 09:07 01/13/25 09:07 01/13/25 09:07 01/13/25 09:07
MDM/Problems Addressed
MDM/Problems Addressed:
79-year-old female presenting to the emergency department after trip and fall landing on both knees happened yesterday. Able to ambulate since but ongoing discomfort. Left knee swollen mild pain to the right knee. Denies any additional injuries.
No redness or warmth. No signs of infection. Patient with likely soft tissue injury. X-ray without signs of fracture. Patient was given a knee wrap and otherwise stable for discharge. Return precautions given.
*Critical Care Note
Total Time (30-74mins, 75-104mins- exclusive of procedures): Not Applicable
ED Attending Note
-
Portions of this chart may have been created with voice recognition software.� Occasional wrong word or��sound alike� substitutions may have occurred due to the inherent limitations of voice recognition software.
Discharge Plan
Departure
Patient Disposition: Home (Routine Discharge)
Date of Disposition: 01/13/25
Time of Disposition: 11:33
Patient with high blood pressure during this ER visit?: No
Condition: Good
Covid-19: Not Applicable
Discharge Problem:
Knee sprain
Instructions: Knee pain - ED discharge instructions
Prescriptions:
No Action
timolol maleate 0.5 % Gel Forming Solution
1 drp BOTH EYES DAILY
fluticasone propionate 50 mcg/actuation [place],Suspension
2 spray INTRANASAL DAILYPRN PRN (Reason: congestion)
magnesium oxide 400 mg magnesium Tablet
400 mg PO DAILY
Preparation H 0.25-14-74.9 % Ointment
1 applic [place] DAILYPRN PRN (Reason: hemorrhoids)
ipratropium-albuterol 0.5 mg-3 mg(2.5 mg base)/3 mL Solution For Nebulization
3 ml inhalation R QID Qty: 90 0RF
prednisone 10 mg tablet
10 mg PO DIRECTED Qty: 45 0RF
Rx Instructions:
take 5 tabs (50mg) x 3 days, then 40mg x 3 days, 30mg x 3 days, 20mg x 3 days, 10mg x 3 days
guaifenesin 600 mg Tablet Extended Release 12hr
600 mg PO Q12 Qty: 30 0RF
budesonide 0.5 mg/2 mL Suspension For Nebulization
0.5 mg inhalation R BID Qty: 60 0RF
benzonatate 100 mg Capsule
200 mg PO TIDPRN PRN (Reason: cough) Qty: 20 0RF
albuterol sulfate 90 mcg/actuation HFA aerosol inhaler
2 puff inhalation R Q4HPRN PRN (Reason: shortness of breath or wheezing) Qty: 8.5 0RF
Referrals:
Stefan De Los Santos MD [Active] - Follow up in 5-7 days
Elijah Barrios MD [Family Provider] -
Activity Restrictions/Additional Instructions:
You came to the emergency department after a fall. Your knees did not have any emergent fractures. Please use ice and rest. Return for any worsening, new or concerning symptoms.
Interventions
Interventions:
*Risk Screen - Suicide Last Done: 01/13/25 09:07
*General Assessment Last Done: 01/13/25 09:54
*Neglect/Abuse Screening Last Done: 01/13/25 09:07
*ED- Fall Risk Assessment Last Done: 01/13/25 09:54
*ED COVID-19 Vaccine History Last Done: 01/13/25 09:54
ED-Musculoskeletal Assessment Last Done: 01/13/25 09:54
ED- Neurological Assessment Last Done: 01/13/25 09:54
ED-Skin Assessment Last Done: 01/13/25 09:54
Discharge Date and Time
Print Language: URUGUAYAN
[2025-01-13 11:36] VITALS: BP 160/73
== END 2025-01-13 11:47 | disposition home or self-care (01) ==
LOC: EMR 09:01
PROVIDERS: EMERGENCY PHYSICIAN Emergency Medicine; FAMILY PHYSICIAN Internal Medicine
DX: S83.92XA Sprain of unspecified site of left knee, initial encounter (principal); W01.0XXA Fall on same level from slipping, tripping and stumbling without subsequent striking against object, initial encounter
CPT/HCPCS: 99283; 73564

== ENCOUNTER 2025-02-26 19:52 | Emergency (ER) | payer MEDICARE, SELFPAY ==
[2025-02-26 19:54] VITALS: BP 170/77
[2025-02-26 20:14] LABS: % Eosinophils 2.4 % (0-6); % Immature Granulocytes 0.2 % (0-0.5); % Lymphocytes 22.4 % (20.5-51.1); % Monocytes 9.2 % (1.7-9.3); % Neutrophils 64.8 % (42.2-75.2); Absolute Basophils 0.1 10^3/uL (0-0.2); Absolute Eosinophils 0.1 10^3/uL (0-0.7); Absolute Lymphocytes 1.3 10^3/uL (1.2-3.4); Absolute Monocytes 0.5 10^3/uL (0.1-0.6); Absolute Neutrophils 3.8 10^3/uL (1.4-6.5); Hematocrit 40.7 % (37.0-47.0); Hemoglobin 12.8 g/dL (12.0-16.0); Mean Corp Hgb Conc. 31.4 g/dL (33.0-37.0); Mean Corpuscular Hgb 31.2 pg (27.0-31.0); Mean Corpuscular Volume 99.3 fL (81.0-99.0); Mean Platelet Volume 9.6 fL (7.4-10.4); Nucleated Red Blood Cells % 0 %; Platelet Count 256 10^3/uL (130-400); Red Cell Dist. Width 13.3 % (11.5-14.5); White Blood Cell Count 5.9 10^3/uL (4.8-10.8)
[2025-02-26 20:35] LABS: ALT (SGPT) 11 U/L (0-35); AST (SGOT) 19 U/L (14-36); Albumin 4.2 g/dl (3.5-5.0); Alkaline Phosphatase 116 U/L (38-126); Blood Urea Nitrogen 33 mg/dl (7-17); Calcium 8.7 mg/dl (8.4-10.2); Carbon Dioxide 30 mmol/L (22-30); Chloride 108 mmol/L (98-107); Glucose 113 mg/dl (70-99); Potassium 4.2 mmol/L (3.5-5.1); Sodium 142 mmol/L (135-145); Total Bilirubin 0.5 mg/dl (0.2-1.3); Total Protein 6.6 g/dl (6.3-8.2); eGFR > 60.00
--- NOTE | 2025-02-26 20:37 | EDRN ---
Pts daughter Tracey, states she is signing her mother out and calling an [employer]. Daughter Tarcey states she is not waiting in waiting room any longer. I explained to pts daughter she has been triaged and assessed by an RN. Pt is on 2L o2 and daughter
took pt off o2 and put pt in [employer]. Pt daughter Tracey states 'I am an RN I can take care of her at home, I am signing her out'
== END 2025-02-26 20:44 ==
LOC: EMR 19:52
PROVIDERS: Emergency Medicine
DX: R06.02 Shortness of breath (principal); F17.200 Nicotine dependence, unspecified, uncomplicated
CPT/HCPCS: 80053; 85025

== ENCOUNTER → 2025-03-24 08:34 | Outpatient (REF) | payer MEDICARE, SELFPAY ==
[2025-03-24 09:24] LABS: % Basophils 0.8 % (0-2); % Immature Granulocytes 0.5 % (0-0.5); % Lymphocytes 22.2 % (20.5-51.1); % Monocytes 6.2 % (1.7-9.3); % Neutrophils 68.3 % (42.2-75.2); Absolute Basophils 0.1 10^3/uL (0-0.2); Absolute Eosinophils 0.1 10^3/uL (0-0.7); Absolute Lymphocytes 1.5 10^3/uL (1.2-3.4); Absolute Monocytes 0.4 10^3/uL (0.1-0.6); Absolute Neutrophils 4.5 10^3/uL (1.4-6.5); Hemoglobin 14.9 g/dL (12.0-16.0); Mean Corpuscular Volume 99.8 fL (81.0-99.0); Mean Platelet Volume 9.9 fL (7.4-10.4); Nucleated Red Blood Cells % 0 %; Platelet Count 282 10^3/uL (130-400); Red Blood Cell Count 4.81 10^6/uL (4.20-5.40); Red Cell Dist. Width 12.7 % (11.5-14.5); White Blood Cell Count 6.6 10^3/uL (4.8-10.8)
[2025-03-24 10:48] LABS: Blood Urea Nitrogen 19 mg/dl (7-17); Calcium 9.1 mg/dl (8.4-10.2); Carbon Dioxide 25 mmol/L (22-30); Chloride 109 mmol/L (98-107); Glucose 111 mg/dl (70-99); Potassium 4.7 mmol/L (3.5-5.1); Sodium 143 mmol/L (135-145); eGFR > 60.00
== END ==
LOC: REG 08:34
PROVIDERS: ATTENDING PHYSICIAN Internal Medicine
DX: R46.89 Other symptoms and signs involving appearance and behavior (principal); J44.9 Chronic obstructive pulmonary disease, unspecified
CPT/HCPCS: 36415; 80048; 85025

== ENCOUNTER → 2025-07-23 07:52 | Outpatient (REF) | payer MEDICARE, SELFPAY ==
[2025-07-23 08:33] LABS: Hematocrit 48.2 % (37.0-47.0); Hemoglobin 15.3 g/dL (12.0-16.0); Mean Corp Hgb Conc. 31.7 g/dL (33.0-37.0); Mean Corpuscular Volume 94.3 fL (81.0-99.0); Nucleated Red Blood Cells % 0 %; Platelet Count 240 10^3/uL (130-400); Red Cell Dist. Width 13.2 % (11.5-14.5)
[2025-07-23 09:52] LABS: ALT (SGPT) 13 U/L (0-35); AST (SGOT) 23 U/L (14-36); Albumin 4.4 g/dl (3.5-5.0); Alkaline Phosphatase 64 U/L (38-126); Blood Urea Nitrogen 21 mg/dl (7-17); Calcium 9.1 mg/dl (8.4-10.2); Carbon Dioxide 30 mmol/L (22-30); Chloride 106 mmol/L (98-107); Glucose 97 mg/dl (70-99); HDL Cholesterol 69 mg/dl; Potassium 4.9 mmol/L (3.5-5.1); Sodium 139 mmol/L (135-145); Total Protein 7.1 g/dl (6.3-8.2); Very Low Density Lipoprotein 39 mg/dl (0-30); eGFR > 60.00
[2025-07-23 10:01] LABS: LDL Cholesterol, Calculated 242 mg/dl
== END ==
LOC: REG 07:52
PROVIDERS: ATTENDING PHYSICIAN Internal Medicine
DX: Z00.01 Encounter for general adult medical examination with abnormal findings (principal); I10 Essential (primary) hypertension; E78.5 Hyperlipidemia, unspecified; Z68.1 Body mass index [BMI] 19.9 or less, adult; R09.02 Hypoxemia; R74.8 Abnormal levels of other serum enzymes
CPT/HCPCS: 36415; 80053; 80061; 85025